=== PATIENT | female | born 1945 | race Caucasian/White ===

== ENCOUNTER 2018-03-14 13:34 | Outpatient (CLI) | payer MEDICARE | END 2018-03-14 13:35 | disposition home or self-care (01) | LOC: ULT 13:34 | PROVIDERS: ATTEND Family Medicine | DX: R01.1 Cardiac murmur, unspecified (principal); I08.1 Rheumatic disorders of both mitral and tricuspid valves | CPT/HCPCS: 93306 ==

== ENCOUNTER 2018-06-13 08:30 | Outpatient (CLI) | payer MEDICARE ==
--- NOTE | 2018-06-13 09:44 | MMO ---
Bilateral MAMMO Bilat Screen [facility]. CLINICAL HISTORY: Patient is 72 years old and is seen for screening. The patient has no family history of breast cancer. The patient has a history of cervical cancer at age 30. VIEWS: The views performed were: bilateral craniocaudal with tomosynthesis; bilateral mediolateral oblique with tomosynthesis; bilateral exaggerated craniocaudal; and right mediolateral oblique. FILMS COMPARED: The present examination has been compared to prior imaging studies performed at [facility] on 07/25/2007 and 07/17/2009, and at [facility] on 01/26/2001 and 06/09/2003. MAMMOGRAM FINDINGS: There are scattered fibroglandular densities. There are stable benign appearing calcifications seen in both breasts. There are no suspicious masses, suspicious calcifications, or new areas of architectural distortion. IMPRESSION: THERE IS NO MAMMOGRAPHIC EVIDENCE OF MALIGNANCY. A ROUTINE FOLLOW-UP MAMMOGRAM IN 1 YEAR IS RECOMMENDED. THE RESULTS OF THIS EXAM WERE SENT TO THE PATIENT. ACR BI-RADS Category 2 - Benign finding MAMMOGRAPHY NOTE: 1. A negative mammogram report should not delay a biopsy if a dominant of clinically suspicious mass is present. 2. Approximately 10% to 15% of breast cancers are not detected by mammography. 3. Adenosis and dense breasts may obscure an underlying neoplasm.
== END 2018-06-13 08:31 | disposition home or self-care (01) ==
LOC: BICMAMMO 08:30
PROVIDERS: ATTEND Family Medicine
DX: Z12.31 Encounter for screening mammogram for malignant neoplasm of breast (principal)
CPT/HCPCS: 77063; 77067

== ENCOUNTER 2018-08-09 20:58 | Emergency (ER) | payer MEDICARE ==
[2018-08-09 21:32] LABS: #Basophils 0.1 thou/uL (0.0-0.2); #Eosinphils 0.3 thou/uL (0.0-0.7); #Lymphocytes 3.7 thou/uL (1.20-3.40); #Monocytes 0.9 thou/uL (0.11-0.59); #Neutrophils 6.9 thou/uL (1.40-6.50); %Eosinophils 2.5 % (0.0-10.0); %Lymphocytes 30.9 % (21.0-51.0); %Monocytes 7.9 % (0.0-10.0); %Neutrophils 57.7 % (42.0-75.0); Hemoglobin 14.3 g/dL (12.0-16.0); Mean Corpuscular HGB CONC 32.6 g/dL (32.0-36.0); Mean Corpuscular Hemoglobin 28.1 pg (27.0-31.0); Mean Corpuscular Volume 86.1 fL (78.0-98.0); Mean Platelet Volume 8.1 fL (7.4-10.4); Platelet Count 306 thou/uL (130-400); RBC Distribution Width 13.2 % (11.5-14.5); Red Blood Cell (RBC) Count 5.08 mill/uL (4.20-5.40); White Blood Cell (WBC) Count 11.9 thou/uL (4.8-10.8)
[2018-08-09 21:55] LABS: ALT (SGPT) 19 U/L (8-55); AST (SGOT) 18 U/L (5-34); Alkaline Phosphatase 78 U/L (40-150); Anion Gap 14 mmol/L (10-20); BUN (Urea Nitrogen) 14 mg/dL (9.8-20.1); Bilirubin, Total 0.5 mg/dL (0.2-1.2); Calc. Creatinine Clearance 0 mL/min (70-130); Calcium 10.4 mg/dL (7.8-10.44); Carbon Dioxide 28 mmol/L (23-31); Chloride 98 mmol/L (98-107); Estimated GFR-MDRD 70; Globulin 3.3 g/dL (2.4-3.5); Glucose 120 mg/dL (83-110); Potassium 4.2 mmol/L (3.5-5.1); Protein, Total 7.3 g/dL (6.0-8.3); Sodium 136 mmol/L (136-145)
--- NOTE | 2018-08-09 21:58 | CT ---
EXAM: CT brain without contrast HISTORY: Dizziness and hypertension COMPARISON: None TECHNIQUE: Multiple contiguous axial images were obtained and a CT of the brain without contrast. FINDINGS: The brain is normal in morphology and attenuation without focal lesions or confluent areas of infarction. There is no evidence of hydrocephalus, intracranial hemorrhage, or extra-axial fluid collection. The calvarium and overlying soft tissues are unremarkable. The visualized paranasal sinuses and masto id air cells are well aerated. IMPRESSION: No evidence of acute intracranial abnormality
--- NOTE | 2018-08-09 22:03 | RAD ---
EXAM: Single view of the chest HISTORY: Dizziness and hypertension COMPARISON: None FINDINGS: Single view of the chest shows an enlarged cardiomediastinal silhouette. There is no eviden ce of consolidation, mass, or pleural effusion. Remote right rib fractures are seen. IMPRESSION: Cardiomegaly without evidence of acute cardiopulmonary disease
[2018-08-09 22:34] LABS: Bilirubin Negative (Negative); Blood, Urine Negative (Negative); Clarity CLEAR (Clear); Glucose, Urine (Dipstick) Negative (Negative); Leukocyte Negative (Negative); Nitrite Negative (Negative); Protein, Urine (Dipstick) Negative (Neg-Trace); Specific Gravity, Urine 1.009 (1.002-1.036); Urobilinogen 0.2 mg/dL (0.2-1.0); pH, Urine 7.5 (5.0-9.0)
[2018-08-09] MEDS ORDERED: Lorazepam 2 MG/ML VIAL ONE (22:53)
--- NOTE | 2018-08-11 16:56 | EKG ---
Test Reason : Blood Pressure : / mmHG Vent. Rate : 093 BPM Atrial Rate : 097 BPM P-R Int : 000 ms QRS Dur : 080 ms QT Int : 360 ms P-R-T Axes : 000 027 008 degrees QTc Int : 447 ms Atrial fibrillation with premature ventricular or aberrantly conducted complexes Nonspecific ST and T wave abnormality Abnormal ECG Confirmed by MADHAVI MCDONALD, RICARDO Preston ([id number]), non linear editor AURELOI ELISE ([id number]) on 08/11/2018 4:56:31 PM Referred By: Confirmed By:RICARDO HENDRICKSON MD
== END 2018-08-09 23:19 | disposition home or self-care (01) ==
LOC: ERS 20:58
DX: I10 Essential (primary) hypertension (principal); E78.5 Hyperlipidemia, unspecified; F32.9 Major depressive disorder, single episode, unspecified; Z87.891 Personal history of nicotine dependence; Z79.899 Other long term (current) drug therapy
CPT/HCPCS: 36415; 70450; 71045; 80053; 81003; 83880; 84484; 85025; 93005; 96372; J2060

== ENCOUNTER 2018-09-11 09:27 | Outpatient (CLI) | payer MEDICARE ==
--- NOTE | 2018-09-11 10:18 | CT ---
CT Pulmonary Lung Scan HISTORY: 30+ years smoking history. Shortness of breath. Quit smoking in 1999. COMPARISON: CT of abdomen and pelvis of 07/05/2007. FINDINGS: The lungs are clear of any infiltrative process. There are no pulmonary nodules identified. Some very minimal groundglass opacity is seen in the right lower lobe with minimal scattered foci of groundglass opacity without any solid component. Mediastinal structures appear unremarkable as noncontrast exam. There are some minimal coronary arter y calcifications present. Hypodensities involving the liver are stable as compared to the prior CT study of 07/05/2007. IMPRESSION: 1. Lung RADS category 2-benign. Annual follow-up examination is recommended. 2. Category S: This modifier is for presence of coronary artery calcifications.
== END 2018-09-11 09:28 | disposition home or self-care (01) ==
LOC: CT 09:27
PROVIDERS: ATTEND Family Medicine
DX: Z12.2 Encounter for screening for malignant neoplasm of respiratory organs (principal); Z87.891 Personal history of nicotine dependence; I25.10 Atherosclerotic heart disease of native coronary artery without angina pectoris
CPT/HCPCS: G0297

== ENCOUNTER 2021-07-28 21:57 | Observation (INO) | payer MEDICARE, OTHER ==
[2021-07-28 22:25] LABS: #Eosinphils 0.1 thou/uL (0.0-0.7); #Lymphocytes 2.2 thou/uL (1.20-3.40); #Monocytes 0.5 thou/uL (0.11-0.59); #Neutrophils 9.8 thou/uL (1.40-6.50); %Basophils 0.1 % (0.0-1.0); %Eosinophils 0.8 % (0.0-10.0); %Lymphocytes 17.2 % (21.0-51.0); %Monocytes 3.7 % (0.0-10.0); %Neutrophils 78.3 % (42.0-75.0); Hemoglobin 14.3 g/dL (12.0-16.0); Mean Corpuscular HGB CONC 34.2 g/dL (32.0-36.0); Mean Corpuscular Hemoglobin 28.7 pg (27.0-31.0); Mean Corpuscular Volume 83.9 fL (78.0-98.0); Mean Platelet Volume 7.6 fL (7.4-10.4); Platelet Count 349 thou/uL (130-400); RBC Distribution Width 13.3 % (11.5-14.5); Red Blood Cell (RBC) Count 4.98 mill/uL (4.20-5.40); White Blood Cell (WBC) Count 12.6 thou/uL (4.8-10.8)
[2021-07-28 22:47] LABS: ALT (SGPT) 12 U/L (8-55); AST (SGOT) 14 U/L (5-34); Albumin 3.8 g/dL (3.4-4.8); Alkaline Phosphatase 85 U/L (40-110); Anion Gap 14 mmol/L (10-20); BUN (Urea Nitrogen) 20 mg/dL (9.8-20.1); Bilirubin, Total 0.7 mg/dL (0.2-1.2); Calc. Creatinine Clearance 0 mL/min (70-130); Calcium 9.5 mg/dL (7.8-10.44); Carbon Dioxide 26 mmol/L (23-31); Chloride 100 mmol/L (98-107); Globulin 3.9 g/dL (2.4-3.5); Glucose 162 mg/dL (83-110); Lipase 13 U/L (8-78); Potassium 3.5 mmol/L (3.5-5.1); Protein, Total 7.7 g/dL (5.8-8.1); Sodium 136 mmol/L (136-145)
[2021-07-28] MEDS ORDERED: Ondansetron PF 4 MG/2 ML Vial ONE (23:48)
[2021-07-29] MEDS ORDERED: Morphine 4 MG/ML VIAL ONE ×2 (01:33→03:14)
[2021-07-29] MEDS ORDERED: Ondansetron PF 4 MG/2 ML Vial ONE (03:14)
[2021-07-29] MEDS ORDERED: Fentanyl 100 MCG/2 ML VIAL ONE (04:40)
[2021-07-29] MEDS ORDERED: Promethazine HCl 25 MG in Sodium Chloride 0.9% 50 ML IVPB SCH (05:00)
[2021-07-29] MEDS ORDERED: metroNIDAZOLE 500 MG/100 ML BAG ONE (05:45)
[2021-07-29] MEDS ORDERED: Dextrose 50% Abboject 50 ML SYRINGE SLOW IVP PRN (07:54)
[2021-07-29] MEDS ORDERED: Dextrose 5% in Water 1,000 ML IV PRN (07:54)
[2021-07-29] MEDS ORDERED: Ondansetron ODT 4 MG TAB PO PRN (08:01)
[2021-07-29] MEDS ORDERED: HumaLOG 300 UNITS/3 ML VIAL SC PRN ×2 (08:01)
[2021-07-29] MEDS ORDERED: HYDROcodone/Acetaminophen 5/325 mg Tablet PO PRN (08:01)
[2021-07-29] MEDS: FLUoxetine HCl 20 MG CAP PO SCH ×2 (09:10→09:19)
[2021-07-29] MEDS: cefTRIAXone\\ROCEPHIN 2 GM in Sodium Chloride 0.9% 100 ML IVPB SCH (09:19)
[2021-07-29] MEDS: Sodium Chloride 0.9% 1,000 ML IV SCH ×3 (09:20→21:03)
[2021-07-29 10:20] VITALS: BMI 31.6
[2021-07-29] MEDS ORDERED: Morphine 2 MG/ML VIAL ONE (13:37)
[2021-07-29] MEDS ORDERED: Iopamidol-370 76% 500 ML 1 ML ONE (14:41)
[2021-07-29] MEDS: metroNIDAZOLE 500 MG in Premix Bag 1 BAG IVPB SCH ×2 (14:48→21:01)
[2021-07-29] MEDS ORDERED: metFORMIN 500 MG TAB PO SCH (17:00)
[2021-07-29] MEDS: Atorvastatin Calcium 20 MG TAB PO SCH (21:00)
[2021-07-29] MEDS: metFORMIN 500 MG TAB PO SCH (21:00)
[2021-07-30] MEDS: metroNIDAZOLE 500 MG in Premix Bag 1 BAG IVPB SCH ×3 (04:58→21:18)
[2021-07-30] MEDS: Sodium Chloride 0.9% 1,000 ML IV SCH ×2 (05:07→13:39)
[2021-07-30] MEDS: cefTRIAXone\\ROCEPHIN 2 GM in Sodium Chloride 0.9% 100 ML IVPB SCH (06:16)
[2021-07-30 06:30] LABS: #Eosinphils 0.2 thou/uL (0.0-0.7); #Lymphocytes 2.8 thou/uL (1.20-3.40); #Monocytes 0.9 thou/uL (0.11-0.59); #Neutrophils 4.8 thou/uL (1.40-6.50); %Basophils 0.3 % (0.0-1.0); %Eosinophils 2.2 % (0.0-10.0); %Lymphocytes 32.4 % (21.0-51.0); %Monocytes 9.9 % (0.0-10.0); %Neutrophils 55.2 % (42.0-75.0); Hemoglobin 11.2 g/dL (12.0-16.0); Mean Corpuscular HGB CONC 32.5 g/dL (32.0-36.0); Mean Corpuscular Hemoglobin 28.8 pg (27.0-31.0); Mean Corpuscular Volume 88.5 fL (78.0-98.0); Platelet Count 230 thou/uL (130-400); RBC Distribution Width 13.3 % (11.5-14.5); Red Blood Cell (RBC) Count 3.89 mill/uL (4.20-5.40); White Blood Cell (WBC) Count 8.8 thou/uL (4.8-10.8)
[2021-07-30 06:38] LABS: ALT (SGPT) 13 U/L (8-55); AST (SGOT) 14 U/L (5-34); Albumin 2.9 g/dL (3.4-4.8); Alkaline Phosphatase 75 U/L (40-110); Anion Gap 10 mmol/L (10-20); BUN (Urea Nitrogen) 19 mg/dL (9.8-20.1); Bilirubin, Total 0.7 mg/dL (0.2-1.2); Calc. Creatinine Clearance 85 mL/min (70-130); Calcium 8.1 mg/dL (7.8-10.44); Carbon Dioxide 26 mmol/L (23-31); Chloride 104 mmol/L (98-107); Globulin 2.8 g/dL (2.4-3.5); Glucose 114 mg/dL (83-110); Protein, Total 5.7 g/dL (5.8-8.1); Sodium 137 mmol/L (136-145)
[2021-07-30] MEDS: metFORMIN 500 MG TAB PO SCH ×2 (09:06→20:24)
[2021-07-30] MEDS: FLUoxetine HCl 20 MG CAP PO SCH (09:09)
[2021-07-30] MEDS: Triamterene/Hydrochlorothiazide 37.5 mg/25 mg Tablet PO SCH (09:16)
[2021-07-30] MEDS: Potassium Chloride 10 MEQ in Premix Bag 1 BAG IVPB SCH ×4 (10:50→17:50)
[2021-07-30] MEDS ORDERED: Iopamidol 30 ML ONE (13:09)
[2021-07-30] MEDS ORDERED: Bupivacaine 0.25% HCL 30 ML VIAL ONE (13:09)
[2021-07-30] MEDS ORDERED: Lidocaine 1% w/Epinephrine 1:100K 20 ML VIAL ONE (13:09)
[2021-07-30] MEDS ORDERED: fentaNYL Citrate/PF 100 MCG/2 ML SYRINGE ONE (13:13)
[2021-07-30] MEDS ORDERED: Levofloxacin 500 mg/D5W 100 ml Premix Bag ONE (13:22)
[2021-07-30] MEDS ORDERED: ePHEDrine 50 MG/ML VIAL ONE (13:28)
[2021-07-30] MEDS ORDERED: Dexamethasone 20 MG/5 ML VIAL ONE (13:28)
[2021-07-30] MEDS ORDERED: PROPOFOL 200 MG/20 ML VIAL ONE (13:28)
[2021-07-30] MEDS ORDERED: Ketorolac Tromethamine 30 MG/ML VIAL ONE (13:28)
[2021-07-30] MEDS ORDERED: Ondansetron PF 4 MG/2 ML Vial ONE (13:28)
[2021-07-30] MEDS ORDERED: Rocuronium Bromide 10 MG/ML (10ML VIAL) ONE (13:28)
[2021-07-30] MEDS ORDERED: Lidocaine 1% PF 5 ML VIAL ONE (13:28)
[2021-07-30] MEDS ORDERED: SUGAMMADEX SODIUM 200 MG/2 ML VIAL ONE (13:45)
[2021-07-30] MEDS ORDERED: HYDROcodone/Acetaminophen 10/325 mg Tablet PO PRN ×2 (14:42)
[2021-07-30] MEDS ORDERED: Promethazine HCl 25 MG/ML VIAL IM PRN (14:42)
[2021-07-30] MEDS ORDERED: Calcium Carbonate 500 MG ChewTAB PO PRN (14:42)
[2021-07-30] MEDS ORDERED: Morphine 2 MG/ML VIAL SLOW IVP PRN (14:42)
[2021-07-30] MEDS ORDERED: Dextrose 5% in Water 1,000 ML IV PRN (14:42)
[2021-07-30] MEDS ORDERED: Mag-Al 1200 mg/1200 mg/30 ML UDCUP PO PRN (14:42)
[2021-07-30] MEDS ORDERED: hydrALAZINE 20 MG/ML VIAL SLOW IVP PRN (14:42)
[2021-07-30] MEDS ORDERED: Dextrose 50% Abboject 50 ML SYRINGE SLOW IVP PRN (14:42)
[2021-07-30] MEDS ORDERED: Ondansetron PF 4 MG/2 ML Vial IVP PRN (14:42)
[2021-07-30] MEDS ORDERED: Morphine 4 MG/ML VIAL SLOW IVP PRN (14:42)
[2021-07-30] MEDS ORDERED: Ondansetron HCl/PF 4 MG/2 ML Vial IVP PRN (14:48)
[2021-07-30] MEDS: Ketorolac Tromethamine 30 MG/ML VIAL IVP SCH (17:59)
[2021-07-30] MEDS: Atorvastatin Calcium 20 MG TAB PO SCH (20:24)
[2021-07-30] MEDS: Famotidine 20 MG TAB PO SCH (20:24)
[2021-07-30] MEDS: Famotidine/PF 20 mg/2ml Vial SLOW IVP SCH (20:26)
[2021-07-31] MEDS: Sodium Chloride 0.9% 1,000 ML IV SCH ×2 (00:29→10:32)
[2021-07-31] MEDS: Ketorolac Tromethamine 30 MG/ML VIAL IVP SCH ×3 (00:30→11:43)
[2021-07-31] MEDS: cefTRIAXone\\ROCEPHIN 2 GM in Sodium Chloride 0.9% 100 ML IVPB SCH (05:23)
[2021-07-31] MEDS: metroNIDAZOLE 500 MG in Premix Bag 1 BAG IVPB SCH (06:09)
[2021-07-31 07:24] LABS: #Lymphocytes 1.4 thou/uL (1.20-3.40); #Monocytes 0.8 thou/uL (0.11-0.59); #Neutrophils 6.4 thou/uL (1.40-6.50); %Basophils 0.3 % (0.0-1.0); %Eosinophils 0.2 % (0.0-10.0); %Lymphocytes 15.9 % (21.0-51.0); %Neutrophils 74.6 % (42.0-75.0); Hemoglobin 11.5 g/dL (12.0-16.0); Mean Corpuscular HGB CONC 32.2 g/dL (32.0-36.0); Mean Corpuscular Hemoglobin 28.6 pg (27.0-31.0); Mean Corpuscular Volume 88.8 fL (78.0-98.0); Mean Platelet Volume 8.2 fL (7.4-10.4); Platelet Count 226 thou/uL (130-400); RBC Distribution Width 13.1 % (11.5-14.5); Red Blood Cell (RBC) Count 4.01 mill/uL (4.20-5.40); White Blood Cell (WBC) Count 8.6 thou/uL (4.8-10.8)
[2021-07-31 07:41] LABS: ALT (SGPT) 23 U/L (8-55); AST (SGOT) 32 U/L (5-34); Albumin 2.9 g/dL (3.4-4.8); Alkaline Phosphatase 67 U/L (40-110); Anion Gap 14 mmol/L (10-20); BUN (Urea Nitrogen) 19 mg/dL (9.8-20.1); Bilirubin, Total 0.3 mg/dL (0.2-1.2); Calc. Creatinine Clearance 81 mL/min (70-130); Calcium 8.2 mg/dL (7.8-10.44); Carbon Dioxide 22 mmol/L (23-31); Chloride 104 mmol/L (98-107); Globulin 3.3 g/dL (2.4-3.5); Glucose 120 mg/dL (83-110); Lipase 8 U/L (8-78); Potassium 3.5 mmol/L (3.5-5.1); Protein, Total 6.2 g/dL (5.8-8.1); Sodium 136 mmol/L (136-145)
[2021-07-31 08:07] VITALS: BP 109/53; TEMP 97.6
[2021-07-31] MEDS ORDERED: Potassium Chloride 20 MEQ TAB PO SCH (08:45)
[2021-07-31] MEDS ORDERED: Enoxaparin Sodium 40 MG/0.4 ML SYRINGE SC SCH (09:00)
[2021-07-31] MEDS: Famotidine/PF 20 mg/2ml Vial SLOW IVP SCH (09:32)
[2021-07-31] MEDS: FLUoxetine HCl 20 MG CAP PO SCH (09:32)
[2021-07-31] MEDS: Triamterene/Hydrochlorothiazide 37.5 mg/25 mg Tablet PO SCH (09:32)
[2021-07-31] MEDS: metFORMIN 500 MG TAB PO SCH (09:32)
[2021-07-31] MEDS: Famotidine 20 MG TAB PO SCH (09:32)
== END 2021-07-31 12:35 | disposition home or self-care (01) ==
LOC: ERS 21:57 → T4-A 07-29 04:59
PROVIDERS: ADMIT Hospitalist; ATTEND Hospitalist
PROC: 0FT44ZZ Resection of Gallbladder, Percutaneous Endoscopic Approach (ICD-10-PCS; principal; 2021-07-30)
PROC: BF101ZZ Fluoroscopy of Bile Ducts using Low Osmolar Contrast (ICD-10-PCS; 2021-07-30)
DX: K80.00 Calculus of gallbladder with acute cholecystitis without obstruction (principal); K82.8 Other specified diseases of gallbladder; K83.8 Other specified diseases of biliary tract; I10 Essential (primary) hypertension; E11.9 Type 2 diabetes mellitus without complications; E87.6 Hypokalemia; E78.5 Hyperlipidemia, unspecified; N28.1 Cyst of kidney, acquired; K42.9 Umbilical hernia without obstruction or gangrene; K76.89 Other specified diseases of liver; Z87.891 Personal history of nicotine dependence; Z79.84 Long term (current) use of oral hypoglycemic drugs; Z79.899 Other long term (current) drug therapy; Z88.0 Allergy status to penicillin; Z20.822 Contact with and (suspected) exposure to COVID-19
CPT/HCPCS: 47532; 47563; 74177; 76705; 78227; 80053 ×3; 82962 ×3; 83690 ×2; 85025 ×3; 87070; 87075; 87077; 87186; 87205; 93005; 96366 ×2; 96372; 96375; A9537; C1713 ×2; G0378 ×4; J1610; J2270; U0003; U0005; 36415; 36416; 88304; 93010; J0696; J1100; J1650; J1885; J1956; J2405; J2550; J2704; J3010; J3480; J3490; J7050; Q9967; S0020

== ENCOUNTER 2021-09-15 11:39 | Outpatient (CLI) | payer OTHER | END 2021-09-15 11:40 | disposition home or self-care (01) | LOC: BICRAD 11:39 | PROVIDERS: ATTEND Family Medicine | DX: M54.2 Cervicalgia (principal); M47.812 Spondylosis without myelopathy or radiculopathy, cervical region; R30.0 Dysuria | CPT/HCPCS: 72052; 87086 ==

== ENCOUNTER 2022-03-01 13:31 | Emergency (ER) | payer OTHER ==
[2022-03-01 15:21] LABS: #Basophils 0.1 thou/uL (0.0-0.2); #Eosinphils 0.2 thou/uL (0.0-0.7); #Lymphocytes 2.3 thou/uL (1.20-3.40); #Monocytes 0.7 thou/uL (0.11-0.59); #Neutrophils 7.9 thou/uL (1.40-6.50); %Basophils 0.6 % (0.0-1.0); %Eosinophils 1.7 % (0.0-10.0); %Lymphocytes 20.4 % (21.0-51.0); %Monocytes 6.2 % (0.0-10.0); Hemoglobin 13.8 g/dL (12.0-16.0); Mean Corpuscular HGB CONC 32.5 g/dL (32.0-36.0); Mean Corpuscular Hemoglobin 28.2 pg (27.0-31.0); Mean Corpuscular Volume 86.6 fl (78.0-98.0); Platelet Count 292 10x3/uL (130-400); RBC Distribution Width 13.1 % (11.5-14.5); Red Blood Cell (RBC) Count 4.89 mill/uL (4.20-5.40); White Blood Cell (WBC) Count 11.1 10x3/uL (4.8-10.8)
[2022-03-01 15:41] LABS: ALT (SGPT) 9 U/L (8-55); AST (SGOT) 13 U/L (5-34); Albumin 3.7 g/dL (3.4-4.8); Alkaline Phosphatase 77 U/L (40-110); Anion Gap 14 mmol/L (10-20); BUN (Urea Nitrogen) 17 mg/dL (9.8-20.1); Bilirubin, Total 0.7 mg/dL (0.2-1.2); Calc. Creatinine Clearance 0 mL/min (70-130); Calcium 9.4 mg/dL (7.8-10.44); Carbon Dioxide 28 mmol/L (23-31); Chloride 100 mmol/L (98-107); Estimated GFR 74; Globulin 3.4 g/dL (2.4-3.5); Glucose 93 mg/dL (83-110); Potassium 3.5 mmol/L (3.5-5.1); Protein, Total 7.1 g/dL (5.8-8.1); Sodium 138 mmol/L (136-145)
[2022-03-01 15:51] LABS: Bilirubin Negative (Negative); Blood, Urine Negative (Negative); Clarity Clear (Clear); Glucose, Urine (Dipstick) Normal (Negative); Ketone, Urine Negative (Negative); Leukocyte Negative Leu/uL (Negative); Nitrite Negative (Negative); Protein, Urine (Dipstick) Negative (Neg-Trace); Specific Gravity, Urine 1.016 (1.002-1.036)
== END 2022-03-01 17:10 | disposition home or self-care (01) ==
LOC: ERS 13:31
DX: R55 Syncope and collapse (principal); E78.5 Hyperlipidemia, unspecified; I10 Essential (primary) hypertension; E11.9 Type 2 diabetes mellitus without complications; Z87.891 Personal history of nicotine dependence; Z79.899 Other long term (current) drug therapy; Z79.84 Long term (current) use of oral hypoglycemic drugs
CPT/HCPCS: 36415; 71045; 80053; 81003; 85025; 93005; 94760

== ENCOUNTER 2023-02-18 10:32 | Emergency (ER) | payer OTHER ==
[2023-02-18] MEDS ORDERED: Iopamidol-370 76% 500 ML MDV (1 ML CHARGE) ONE (11:19)
[2023-02-18 11:26] LABS: #Basophils 0.1 thou/uL (0.0-0.2); #Eosinphils 0.1 thou/uL (0.0-0.7); #Monocytes 0.5 thou/uL (0.11-0.59); %Basophils 0.5 % (0.0-1.0); %Eosinophils 1.4 % (0.0-10.0); %Lymphocytes 33.8 % (21.0-51.0); %Monocytes 5.3 % (0.0-10.0); %Neutrophils 58.4 % (42.0-75.0); Hematocrit 43.8 % (36.0-47.0); Hemoglobin 13.8 g/dL (12.0-16.0); Mean Corpuscular HGB CONC 31.5 g/dL (32.0-36.0); Mean Corpuscular Hemoglobin 27.1 pg (27.0-31.0); Mean Corpuscular Volume 85.9 fl (78.0-98.0); Mean Platelet Volume 10.8 fL (7.4-10.4); Platelet Count 367 10x3/uL (130-400); RBC Distribution Width 14.6 % (11.5-14.5); White Blood Cell (WBC) Count 10.2 10x3/uL (4.8-10.8)
[2023-02-18 11:51] LABS: ALT (SGPT) 12 U/L (8-55); AST (SGOT) 17 U/L (5-34); Albumin 3.8 g/dL (3.4-4.8); Alkaline Phosphatase 81 U/L (40-110); Anion Gap 15 mmol/L (10-20); BUN (Urea Nitrogen) 10 mg/dL (9.8-20.1); Calc. Creatinine Clearance 0 mL/min (70-130); Calcium 9.6 mg/dL (7.8-10.44); Carbon Dioxide 23 mmol/L (23-31); Chloride 103 mmol/L (98-107); Estimated GFR 75; Globulin 4.2 g/dL (2.4-3.5); Glucose 109 mg/dL (83-110); Lipase 11 U/L (8-78); Potassium 3.7 mmol/L (3.5-5.1); Sodium 137 mmol/L (136-145)
[2023-02-18 11:52] LABS: Troponin I Less than 0.010 ng/mL (< 0.028)
== END 2023-02-18 13:02 | disposition home or self-care (01) ==
LOC: ERS 10:32
DX: J18.9 Pneumonia, unspecified organism (principal); E11.9 Type 2 diabetes mellitus without complications; I10 Essential (primary) hypertension; Z87.891 Personal history of nicotine dependence
CPT/HCPCS: 36415; 71045; 71275; 80053; 83690; 83880; 84484; 85025; 85379; 93005; Q9967

== ENCOUNTER 2023-12-25 11:36 | Outpatient (CLI) | payer OTHER | END 2023-12-25 11:37 | disposition home or self-care (01) | LOC: SCSRAD 11:36 | PROVIDERS: ATTEND Nurse Practitioner Family | DX: R06.02 Shortness of breath (principal); J98.4 Other disorders of lung; I70.0 Atherosclerosis of aorta; Z87.81 Personal history of (healed) traumatic fracture | CPT/HCPCS: 71046 ==

== ENCOUNTER 2024-01-27 10:57 | Inpatient (IN) | payer OTHER ==
[2024-01-27 11:45] LABS: #Basophils 0.03 10x3/uL (0.0-0.2); %Basophils 0.4 % (0.0-1.0); %Eosinophils 1.9 % (0.0-10.0); %Lymphocytes 25.3 % (21.0-51.0); %Monocytes 5.6 % (0.0-10.0); %Neutrophils 66.4 % (42.0-75.0); Hematocrit 40.9 % (36.0-47.0); Mean Corpuscular HGB CONC 31.8 g/dL (32.0-36.0); Mean Corpuscular Hemoglobin 26.6 pg (27.0-31.0); Mean Corpuscular Volume 83.6 fL (78.0-98.0); Mean Platelet Volume 10.7 fL (7.4-10.4); Platelet Count 275 10x3/uL (130-400); RBC Distribution Width 14.5 % (11.5-14.5); Red Blood Cell (RBC) Count 4.89 mill/uL (4.20-5.40)
[2024-01-27 11:58] LABS: ALT (SGPT) 13 U/L (8-55); AST (SGOT) 19 U/L (5-34); Albumin 3.3 g/dL (3.4-4.8); Alkaline Phosphatase 79 U/L (40-110); Anion Gap 14 mmol/L (10-20); BUN (Urea Nitrogen) 13 mg/dL (9.8-20.1); Bilirubin, Total 0.8 mg/dL (0.2-1.2); Calc. Creatinine Clearance 0 mL/min (70-130); Carbon Dioxide 23 mmol/L (23-31); Chloride 107 mmol/L (98-107); Estimated GFR 83; Globulin 3.5 g/dL (2.4-3.5); Glucose 134 mg/dL (83-110); Potassium 3.6 mmol/L (3.5-5.1); Protein, Total 6.8 g/dL (5.8-8.1); Sodium 140 mmol/L (136-145)
[2024-01-27 12:01] LABS: Troponin I 0.026 ng/mL (< 0.028)
[2024-01-27] MEDS ORDERED: Azithromycin 500 MG VIAL ONE (14:12)
[2024-01-27] MEDS ORDERED: Sodium Chloride 0.9% 100 ML ONE (14:12)
[2024-01-27] MEDS ORDERED: cefTRIAXone (ROCEPHIN) 1 GM VIAL ONE (14:13)
[2024-01-27] MEDS ORDERED: Senokot S 8.6-50 MG TAB PO PRN (15:16)
[2024-01-27] MEDS ORDERED: Ondansetron PF 4 MG/2 ML Vial IVP PRN (15:16)
[2024-01-27] MEDS ORDERED: Ondansetron ODT 4 MG TAB PO PRN (15:16)
[2024-01-27] MEDS ORDERED: Insulin Lispro 100 UNIT/ML 10 ML VIAL SC PRN ×2 (15:49)
[2024-01-27] MEDS ORDERED: Glucagon 1 MG/ML KIT IM PRN (15:49)
[2024-01-27] MEDS ORDERED: Dextrose 5% in Water 1,000 ML IV PRN (15:49)
[2024-01-27] MEDS ORDERED: Dextrose 50% Abboject 50 ML SYRINGE SLOW IVP PRN (15:49)
[2024-01-27] MEDS ORDERED: Lactated Ringer's 1,000 ML IV SCH (16:15)
[2024-01-27 17:20] VITALS: BMI 29.7
[2024-01-27] MEDS: Enoxaparin 40 MG (0.4 mL) SYRINGE SC SCH (17:35)
[2024-01-27] MEDS: Albuterol 2.5 MG (3 mL) NEB NEB SCH (18:48)
[2024-01-27] MEDS: Guaifenesin DM 100-10/5 ML UDCUP PO PRN (20:41)
[2024-01-27 20:49] LABS: Influenza A by NAA Not Detected (NotDetected); Influenza B by NAA Not Detected (NotDetected); RSV by NAA DETECTED (NotDetected); SARS-CoV-2 NAA Rapid Test Not Detected (NotDetected)
[2024-01-27] MEDS: Albuterol 2.5 MG (3 mL) NEB NEB PRN (23:49)
[2024-01-28] MEDS: Melatonin 3 MG TAB PO SCH ×2 (00:24→22:55)
[2024-01-28] MEDS: Benzonatate 100 MG CAP PO PRN (00:24)
[2024-01-28 01:06] LABS: Legionella Urinary Ag Negative (Negative); Strep pneumo Urine Ag NEGATIVE (NEGATIVE)
[2024-01-28] MEDS: Azithromycin 250 MG TAB PO SCH (08:52)
[2024-01-28] MEDS: Enoxaparin 40 MG (0.4 mL) SYRINGE SC SCH (08:52)
[2024-01-28] MEDS: Triamterene/Hydrochlorothiazide 37.5 mg/25 mg Tablet PO SCH (08:53)
[2024-01-28] MEDS: Atorvastatin Calcium 20 MG TAB PO SCH (08:53)
[2024-01-28] MEDS: FLUoxetine HCl 20 MG CAP PO SCH (08:53)
[2024-01-28] MEDS: Famotidine 20 MG TAB PO SCH (08:53)
[2024-01-28 09:52] LABS: #Basophils Less than 0.03 10x3/uL (0.0-0.2); %Basophils 0.1 % (0.0-1.0); %Eosinophils 2.5 % (0.0-10.0); %Lymphocytes 35.6 % (21.0-51.0); %Neutrophils 54.5 % (42.0-75.0); Hematocrit 37.7 % (36.0-47.0); Hemoglobin 11.9 g/dL (12.0-16.0); Mean Corpuscular HGB CONC 31.6 g/dL (32.0-36.0); Mean Corpuscular Hemoglobin 26.7 pg (27.0-31.0); Mean Corpuscular Volume 84.7 fL (78.0-98.0); Mean Platelet Volume 10.9 fL (7.4-10.4); Platelet Count 266 10x3/uL (130-400); RBC Distribution Width 14.6 % (11.5-14.5); Red Blood Cell (RBC) Count 4.45 mill/uL (4.20-5.40)
[2024-01-28 10:09] LABS: Anion Gap 12 mmol/L (10-20); BUN (Urea Nitrogen) 12 mg/dL (9.8-20.1); Calc. Creatinine Clearance 83 mL/min (70-130); Calcium 8.9 mg/dL (7.8-10.44); Carbon Dioxide 24 mmol/L (23-31); Chloride 106 mmol/L (98-107); Estimated GFR 83; Glucose 130 mg/dL (83-110); Magnesium 1.7 mg/dL (1.6-2.6); Potassium 3.2 mmol/L (3.5-5.1); Sodium 139 mmol/L (136-145)
[2024-01-28] MEDS: cefTRIAXone\\ROCEPHIN 1 GM in Sodium Chloride 0.9% 100 ML IVPB SCH (14:26)
[2024-01-28] MEDS: Potassium Chloride 20 MEQ TAB PO SCH (14:26)
[2024-01-29 06:30] LABS: #Basophils Less than 0.03 10x3/uL (0.0-0.2); %Basophils 0.3 % (0.0-1.0); %Lymphocytes 32.5 % (21.0-51.0); %Monocytes 9.3 % (0.0-10.0); %Neutrophils 54.6 % (42.0-75.0); Hematocrit 34.6 % (36.0-47.0); Hemoglobin 11.2 g/dL (12.0-16.0); Mean Corpuscular HGB CONC 32.4 g/dL (32.0-36.0); Mean Corpuscular Hemoglobin 26.8 pg (27.0-31.0); Mean Corpuscular Volume 82.8 fL (78.0-98.0); Mean Platelet Volume 10.7 fL (7.4-10.4); Platelet Count 255 10x3/uL (130-400); RBC Distribution Width 14.6 % (11.5-14.5); Red Blood Cell (RBC) Count 4.18 mill/uL (4.20-5.40)
[2024-01-29 06:54] LABS: Anion Gap 9 mmol/L (10-20); BUN (Urea Nitrogen) 9 mg/dL (9.8-20.1); Calc. Creatinine Clearance 79 mL/min (70-130); Carbon Dioxide 26 mmol/L (23-31); Chloride 105 mmol/L (98-107); Estimated GFR 79; Glucose 109 mg/dL (83-110); Potassium 3.8 mmol/L (3.5-5.1); Sodium 136 mmol/L (136-145)
[2024-01-29] MEDS: Acetaminophen 325 MG TAB PO PRN (08:03)
[2024-01-29] MEDS: FLU (Fluad Triv) TS24-25 (65UP)/MF59C/PF 45 MCG/0.5 ML Syringe IM ONE (10:35)
[2024-01-29] MEDS: Melatonin 3 MG TAB PO PRN (22:04)
[2024-01-30] MEDS: methylPREDNISolone Sod Succ 40 MG VIAL IVP SCH (14:36)
[2024-01-30] MEDS: guaiFENesin/DM ER PO SCH ×2 (14:36→21:02)
[2024-01-31] MEDS: methylPREDNISolone Sod Succ 40 MG VIAL IVP SCH (08:57)
[2024-02-01 05:46] VITALS: TEMP 98.3
[2024-02-01 15:08] VITALS: BP 161/84
== END 2024-02-01 15:04 | disposition home or self-care (01) | DRG 193 ==
LOC: ERS 10:57 → INTOOBSV 15:20 → T4-A 15:20 → OBSVTOIN 01-29 14:48
PROVIDERS: ADMIT Internal Medicine; ATTEND Internal Medicine
DX: J12.89 Other viral pneumonia (principal); J96.01 Acute respiratory failure with hypoxia; E11.9 Type 2 diabetes mellitus without complications; I10 Essential (primary) hypertension; E78.5 Hyperlipidemia, unspecified; F41.1 Generalized anxiety disorder; Z88.0 Allergy status to penicillin; Z79.899 Other long term (current) drug therapy; Z79.84 Long term (current) use of oral hypoglycemic drugs; Z90.49 Acquired absence of other specified parts of digestive tract; B97.4 Respiratory syncytial virus as the cause of diseases classified elsewhere
CPT/HCPCS: 0241U; 36415; 36416; 71045; 80048; 80053; 83605; 83735; 83880; 84145; 84484; 85025; 87040; 87070; 87205; 87449; 87899; 93005; 94640; 96372; 96374; 96375; 96376; G0378; J0456; J0696; J1650; J2919; J7611

== ENCOUNTER 2024-03-18 14:16 | Outpatient (CLI) | payer MEDICARE, OTHER | END 2024-03-18 14:17 | disposition home or self-care (01) | LOC: SCSRAD 14:16 | PROVIDERS: ATTEND Family Medicine | DX: N20.9 Urinary calculus, unspecified (principal) | CPT/HCPCS: 74018 ==